=== PATIENT | male | born 1990 | race Hispanic/Latino ===

== ENCOUNTER 2018-12-31 13:11 | Emergency (ER) | payer SELFPAY ==
[2018-12-31 13:24] VITALS: BP 166/79; PULSE 67
--- NOTE | 2018-12-31 14:12 | ERPHSYRPT ---
- History of Present Illness Time Seen by Provider: 12/31/18 13:25 Source: patient Exam Limitations: no limitations Patient Subjective Stated Complaint: pt here for sore throat and pain to both ears for 4 weeks now, with some sob,he has been taking claritn. pt is spanishe speaking and Dr. Castellon is translating Triage Nursing Assessment: pt alert. walked in, resp easy, skin w/d/p. no edema noted, moves all ext well Physician History: 28 y/o male nonsmoker presents with sore throat for 1 month. sx not improved. has used claritin without benefit. pt is not on any meds and has nkda. pt has no medical problems. pt denies cp and denies abd pain. pt denies soa. Timing/Duration: gradual onset, intermittent, weeks (4) Severity: mild ENT Location: ear (R), ear (L), throat Prearrival Treatment: over the counter meds Modifying Factors: Improves With: other (swallowing) Associated Symptoms: ear pain (R), ear pain (L), sore throat Allergies/Adverse Reactions: No Known Drug Allergies Allergy (Unverified 12/31/18 13:38) Hx Influenza Vaccination/Date Given: No Hx Pneumococcal Vaccination/Date Given: No Immunizations Up to Date: (unsure) - Review of Systems Constitutional: No Symptoms Eyes: No Symptoms Ears, Nose, & Throat: Throat Pain Respiratory: No Symptoms Cardiac: No Symptoms Abdominal/Gastrointestinal: No Symptoms Genitourinary Symptoms: No Symptoms Musculoskeletal: No Symptoms Skin: No Symptoms Neurological: No Symptoms Psychological: No Symptoms Endocrine: No Symptoms Hematologic/Lymphatic: No Symptoms Immunological/Allergic: No Symptoms All Other Systems: Reviewed and Negative - Past Medical History Pertinent Past Medical History: No Neurological History: No Pertinent History ENT History: No Pertinent History Cardiac History: No Pertinent History Respiratory History: No Pertinent History Endocrine Medical History: No Pertinent History Musculoskeletal History: No Pertinent History GI Medical History: No Pertinent History History: No Pertinent History Psycho-Social History: No Pertinent History Male Reproductive Disorders: No Pertinent History - Past Surgical History Past Surgical History: Yes Neuro Surgical History: No Pertinent History Cardiac: No Pertinent History Respiratory: No Pertinent History Gastrointestinal: No Pertinent History Genitourinary: No Pertinent History Musculoskeletal: Orthopedic Surgery Male Surgical History: No Pertinent History Other Surgical History: foot - Social History Smoking Status: Never smoker Exposure to second hand smoke: Yes Drug Use: none Patient Lives Alone: No - Nursing Vital Signs Nursing Vital Signs: Initial Vital Signs Temperature 987 F 12/31/18 13:22 Pulse Rate 67 12/31/18 13:22 Respiratory Rate 16 12/31/18 13:22 Blood Pressure 166/79 12/31/18 13:22 O2 Sat by Pulse Oximetry 99 12/31/18 13:22 Pain Scale Pain Intensity 4 - Physical Exam General Appearance: no apparent distress, alert, anxiety Eye Exam: bilateral eye: normal inspection, PERRL, EOMI Ear Exam: bilateral ear: auricle normal, canal normal, TM normal Nasal Exam: normal inspection Throat Exam: moist mucus membranes, pharynx swelling, pharynx tenderness, No uvula swelling, No voice changes Neck Exam: normal inspection, non-tender, supple, full range of motion Cardiovascular/Respiratory Exam: chest non-tender, normal breath sounds, regular rate/rhythm, heart sounds normal, no respiratory distress Abdominal Exam: non-tender, soft, no organomegaly, no hernia, No guarding, No tenderness Neurologic Exam: alert, oriented x 3, cooperative, 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 follow up with outpatient doctor for persistent symptoms Prescriptions: Azithromycin 250 mg [Zithromax 250 MG TABLET] 250 mg PO ZPACK #6 tablet Hydrocodone Bit/Acetaminophen [Hydrocodone-Acetaminophen Soln] 10 ml PO Q6H # 120 ml Prednisone 10 mg [Deltasone 10 mg] 10 mg PO TID #12 tablet
[2018-12-31 14:43] VITALS: O2SAT 98
== END 2018-12-31 14:43 | disposition home or self-care (01) ==
LOC: ED 13:11
DX: J02.9 Acute pharyngitis, unspecified (principal)
CPT/HCPCS: 99283